=== PATIENT | female | born 1960 | race American Indian/Alaskan Native ===

== ENCOUNTER 2023-06-28 19:00 | Emergency (ER) | payer OTHER ==
[2023-06-28] MEDS ORDERED: Acetaminophen 500 MG TAB ONE (19:37)
[2023-06-28] MEDS ORDERED: Ondansetron ODT 4 MG TAB ONE (19:41)
== END 2023-06-28 20:21 | disposition home or self-care (01) ==
LOC: CSHERS 19:00
DX: S09.90XA Unspecified injury of head, initial encounter (principal); I10 Essential (primary) hypertension; E78.5 Hyperlipidemia, unspecified; E03.9 Hypothyroidism, unspecified; Z79.899 Other long term (current) drug therapy; W01.0XXA Fall on same level from slipping, tripping and stumbling without subsequent striking against object, initial encounter
CPT/HCPCS: 70450; 72125; Q0162

== ENCOUNTER 2023-09-14 19:09 | Emergency (ER) | payer OTHER ==
[2023-09-14] MEDS ORDERED: Adenosine 6 MG/2 ML VIAL ONE (19:27)
[2023-09-14 19:45] LABS: #Basophils 0.1 10x3/uL (0.0-0.2); #Eosinphils 0.2 10x3/uL (0.0-0.5); #Monocytes 0.8 10x3/uL (0.0-1.1); #Neutrophils 6.2 10x3/uL (1.5-8.4); %Basophils 0.7 % (0.0-2.0); %Eosinophils 1.5 % (0.0-6.0); %Lymphocytes 29.3 % (18.0-47.0); %Monocytes 7.8 % (0.0-10.0); %Neutrophils 60.3 % (40.0-75.0); Hematocrit 41.7 % (34.9-44.5); Hemoglobin 13.7 g/dL (12.0-15.5); Mean Corpuscular HGB CONC 32.9 g/dL (32.0-36.0); Mean Corpuscular Hemoglobin 27.9 pg (27.0-33.0); Mean Corpuscular Volume 84.9 fl (81.6-98.3); Mean Platelet Volume 11.1 fl (7.4-10.4); Platelet Count 258 10x3/uL (150-450); RBC Distribution Width 13.1 % (11.5-14.5); Red Blood Cell (RBC) Count 4.91 10x6/uL (3.90-5.03); White Blood Cell (WBC) Count 10.3 10x3/uL (3.5-10.5)
[2023-09-14 20:06] LABS: ALT (SGPT) 25 U/L (8-55); AST (SGOT) 32 U/L (5-34); Albumin 4.8 g/dL (3.5-5.0); Alkaline Phosphatase 82 U/L (40-110); Anion Gap 18 mmol/L (10-20); BUN (Urea Nitrogen) 13 mg/dL (9.8-20.1); Bilirubin, Total 0.4 mg/dL (0.2-1.2); Calc. Creatinine Clearance 0 mL/min (70-130); Calcium 10.1 mg/dL (7.8-10.44); Carbon Dioxide 20 mmol/L (22-29); Chloride 106 mmol/L (98-107); Estimated GFR 88; Globulin 2.8 g/dL (2.4-3.5); Glucose 112 mg/dL (70-105); Potassium 3.6 mmol/L (3.5-5.1); Protein, Total 7.6 g/dL (6.0-8.3); Sodium 140 mmol/L (136-145)
[2023-09-14 20:17] LABS: Troponin I Less than 0.010 ng/mL (< 0.028)
== END 2023-09-14 21:14 | disposition home or self-care (01) ==
LOC: CSHERS 19:09
DX: I47.10 Supraventricular tachycardia, unspecified (principal); I10 Essential (primary) hypertension; E78.5 Hyperlipidemia, unspecified; E03.9 Hypothyroidism, unspecified
CPT/HCPCS: 71045; 71275; 80053; 84484; 85025; 93005; 96374; J0153